=== PATIENT | female | born 1995 ===

== ENCOUNTER → 2017-04-03 | Outpatient (CLI) | payer BC ==
--- NOTE | 2017-04-03 10:51 | DIAGNOSTIC IMAGING REPORT ---
LEFT FOOT 2 VIEWS HISTORY: 21 years-old Female acute second left metatarsal pain status post trauma. COMPARISON: None available TECHNIQUE: Frontal and lateral views of the left foot were obtained with weightbearing. FINDINGS: Mid foot alignment is anatomic on this weightbearing study. There is no acute fracture, dislocation or significant degenerative changes identified. There is no large ankle joint effusion. There is mild dorsal forefoot soft tissue swelling without radiopaque foreign body. IMPRESSION: Mild dorsal forefoot soft tissue swelling without acute fracture. The above report was generated using voice recognition software. It may contain grammatical, syntax or spelling errors. Electronically signed by: Yung Kaur M.D. 04/03/2017 10:49 AM Dictated Date/Time: 04/03/2017 10:47 AM
== END | disposition home or self-care (01) ==
LOC: C.RDSM 12:08
PROVIDERS: ATTEND Internal Medicine
DX: M79.672 Pain in left foot (principal)